=== PATIENT | male | born 1945 | race Caucasian/White ===

== ENCOUNTER 2017-12-18 13:20 | Emergency (ER) | payer OTHER, MEDICAID ==
--- NOTE | 2017-12-18 13:58 | EDPHY ---
H & P Time Seen by Provider: 12/18/17 13:36 HPI/ROS: HPI Job done peanut butter and jelly. 72-year-old male by private vehicle with care provider. This patient has a history of developmental delay. He was with a group of people with similar disabilities. There were care providers at the scene. He was eating lunch and specifically eating a peanut butter and jelly sandwich when he started choking. Heimlich maneuver was performed by 1 of the staff members successfully. His throat was cleared. He was brought to the emergency department for evaluation. He denies any complaints at this time. The care provider who is in the room with him tells me he is acting appropriately. ROS: Constitutional: No fever, no chills. No weakness. ENT: No sore throat. No nasal congestion or rhinorrhea. Respiratory: No cough. No shortness of breath. Cardiac: No chest pain, no palpitations. Gastrointestinal: No abdominal pain, no vomiting, no diarrhea. Musculoskeletal: No back pain. No neck pain. Neurological: No headache. No focal weakness or altered sensation. Past medical history: Legally blind, developmental delay, GERD. Social history: Nonsmoker. No alcohol. As above. Physical Exam: General Appearance: Alert, pleasant, no distress. This patient is responding to questions appropriately. This patient appears well-hydrated and well- nourished. Eyes: Pupils equal and round no pallor or injection. No lid edema, erythema or injection. ENT, Mouth: Mucous membranes are moist. The pharyngeal tissues are unremarkable. No edema or swelling. No asymmetry suggestive of abscess. No erythema or exudates. No stridor on auscultation of his neck. No tongue lacerations or abrasions. Respiratory: There are no retractions, lungs are clear to auscultation with good air movement bilaterally. Neurological: Motor sensory function is grossly intact. Cranial nerves are normal. Gait is normal. Skin: Warm and dry, no rashes. Musculoskeletal: Neck is supple and nontender. Extremities are symmetrical. All joints range without pain or impingement. Psychiatric: No agitation. No depression. Database: EKG: Imaging: Procedures: Emergency department course: Vital signs reviewed and are normal. This patient has a normal physical exam with no sequelae or residual affects noted from his choking incident. I feel he is safe for discharge. The care provider feels comfortable taking him home. Follow-up was reviewed with the care provider. Return to emergency department precautions discussed. All of her questions were answered. The patient was discharged home in good condition. Differential Diagnosis: The differential diagnosis on this patient includes but is not limited to choking incident. Retained upper airway foreign body, upper airway inflammatory response unlikely. This represents a partial list of diagnoses considered. These considerations are based on history, physical exam, past history, reassessment and diagnostic testing. Smoking Status: Never smoked Constitutional: Initial Vital Signs Temperature (C) 36.8 C 12/18/17 13:20 Heart Rate 60 12/18/17 13:20 Respiratory Rate 15 12/18/17 13:20 Blood Pressure 119/76 12/18/17 13:20 O2 Sat (%) 97 12/18/17 13:20 O2 Delivery Mode Room Air Allergies/Adverse Reactions: Bleach (Sodium Hypochlorite) Allergy (Verified 12/18/17 13:27) Penicillins Allergy (Verified 12/18/17 13:27) pollen extracts Allergy (Verified 12/18/17 13:27) strong detergent and fabric softene Allergy (Uncoded 12/18/17 13:27) Home Medications: Medication Instructions Recorded Benefiber 12/18/17 Calcium 12/18/17 Colace 12/18/17 Finasteride 12/18/17 Flomax 12/18/17 Flonase Nasal [place] 12/18/17 Multivitamin (*) 12/18/17 Prilosec 12/18/17 Proscar 5 MG (*) 12/18/17 Toprol Xl 12/18/17 Vitamin B Complex 12/18/17 Departure - Departure Disposition: Home, Routine, Self-Care Clinical Impression: Choking episode Condition: Good Instructions: Performing the Heimlich Maneuver (ED) Additional Instructions: Read and follow provided instructions. Follow-up with your primary care physician on Thursday for re-evaluation as needed. Continue taking medications as prescribed. Return to the emergency department for worsening symptoms or other serious concerns. Referrals: Patient,NotPresent [Primary Care Provider] - As per Instructions
[2017-12-18 14:11] VITALS: BP 117/72
== END 2017-12-18 14:10 | disposition home or self-care (01) ==
LOC: EDUNIT#
DX: R09.89 Other specified symptoms and signs involving the circulatory and respiratory systems (principal)

== ENCOUNTER → 2018-11-12 | Outpatient (CLI) | payer OTHER, MEDICAID | LOC: EMCIMAGING 08:39 ==